=== PATIENT | female | born 1950 | race Caucasian/White ===

== ENCOUNTER 2019-01-28 13:39 | Outpatient (CLI) | payer MEDICARE, OTHER ==
--- NOTE | 2019-01-28 14:23 | ULT ---
Renal sonogram HISTORY: Chronic renal disease. FINDINGS: Right kidney measures up to 10.7 cm. There is a 1.1 cm simple cyst of the superior pole. No hydronephrosis. Left kidney is 10.9 cm. Normal sonographic appearance. Urinary bladder is unremarkable with bilateral ureteral jets visualized. Post void residual is minima l. IMPRESSION: Small right renal cyst. No evidence of urinary tract obstruction.
== END 2019-01-28 13:40 | disposition home or self-care (01) ==
LOC: BICULT 13:39
PROVIDERS: ATTEND Internal Medicine Nephrology
DX: N18.9 Chronic kidney disease, unspecified (principal); N28.1 Cyst of kidney, acquired
CPT/HCPCS: 76770